=== PATIENT | female | born 1975 | race Caucasian/White ===

== ENCOUNTER 2017-11-17 10:18 | Inpatient (IN) | payer OTHER ==
[~2017-11-17] VITALS: Ht 167.6 cm; Wt 63.5 kg
--- NOTE | 2017-11-17 11:25 | NUR ---
PT AA/OX4 COMPLAINING OF RLQ ABDOMINAL PAIN. "I THREW UP A FEW TIMES YESTERDAY AND LAST NIGHT WHEN I TRIED TO EAT." 02/05 PAIN "CONSTANT." NO S/S OF SOB. DENIES CHEST PAIN. VSS. NAD. AMBULATED TO HOSPITAL BED WITH STEADY GAIT. AWAITING MD GALEANA.
[2017-11-17] MEDS ORDERED: MORPHINE SULFATE INJ 2 MG/ML DISP.SYRIN IV ONE ×2 (11:30→20:00)
[2017-11-17] MEDS ORDERED: ONDANSETRON HCL/PF - ER 4 MG/2 ML VIAL IV ONE (11:30)
[2017-11-17] MEDS ORDERED: ONDANSETRON HCL/PF 4 MG/2 ML VIAL ONE ×2 (11:36→14:41)
[2017-11-17] MEDS ORDERED: MORPHINE SULFATE INJ 4 MG/ML DISP.SYRIN ONE ×2 (11:36→19:54)
[2017-11-17 11:44] LABS: BASOPHILS # (AUTO) 0.1 /CMM (0.0-0.2); BASOPHILS % (AUTO) 1.3 % (0.0-2.0); EOSINOPHILS % (AUTO) 0.9 % (0.0-6.0); HEMATOCRIT 42 % (33-45); HEMOGLOBIN 14.3 g/dL (11.5-14.8); LYMPHOCYTES # (AUTO) 1.1 /CMM (0.8-4.8); LYMPHOCYTES % (AUTO) 11.6 % (20.0-44.0); MEAN CORPUSCULAR HEMOGLOBIN 32 PG (26.0-33.0); MEAN CORPUSCULAR HGB CONC 35 g/dl (31.0-36.0); MEAN CORPUSCULAR VOLUME 92 fL (82-100); MONOCYTES # (AUTO) 0.6 /CMM (0.1-1.30); MONOCYTES % (AUTO) 6.4 % (2.0-12.0); NEUTROPHILS # (AUTO) 7.4 /CMM (1.8-8.9); NEUTROPHILS % (AUTO) 79.8 % (43.0-81.0); PLATELET COUNT (AUTO) 226 /CMM (150-450); RDW COEFFICIENT OF VARIATION 12.1 (11.5-15.0); WHITE BLOOD COUNT (AUTO) 9.3 K/uL (4.3-11.0)
--- NOTE | 2017-11-17 11:45 | NUR ---
PT REFUSED MORPHINE AND ZOFRAN PER ORDERED BY MD. PT REFUSING TO GIVE URINE. PT REFUSED IV.
[2017-11-17 11:52] LABS: CALCIUM, SERUM 9.2 mg/dL (8.5-10.1); CREATININE 0.7 mg/dL (0.6-1.3)
[2017-11-17 11:57] LABS: ALBUMIN 3.8 g/dL (3.4-5.0); BILIRUBIN,TOTAL 1.5 mg/dL (0.2-1.0); TOTAL PROTEIN, SERUM 7.8 g/dL (6.4-8.2)
--- NOTE | 2017-11-17 12:20 | NUR ---
PT UNDERGOING CT. INSERTION OF SALINE LOCK
--- NOTE | 2017-11-17 12:26 | NUR ---
PT RETURNED FROM CT. STABLE CONDITION. NAD. VSS.
[2017-11-17] MEDS ORDERED: PIPERACILLIN /TAZOBACTAM 3.375 G in IV D5W 50 ML IV ONE (13:30)
[2017-11-17] MEDS ORDERED: PIPERACILLIN /TAZOBACTAM 3.375 G VIAL IV ONE (13:38)
[2017-11-17] MEDS ORDERED: KETOROLAC TROMETHAMINE INJ 30 MG/ML VIAL ONE (14:41)
[2017-11-17] MEDS ORDERED: ONDANSETRON HCL/PF 4 MG/2 ML VIAL IV ONE ×2 (15:00→20:30)
[2017-11-17] MEDS ORDERED: KETOROLAC TROMETHAMINE INJ 30 MG/ML VIAL IV ONE (15:00)
--- NOTE | 2017-11-17 15:24 | NUR ---
PT AMBULATED STABLE CONDITION TO CT.
--- NOTE | 2017-11-17 16:54 | NUR ---
CALLED JULIA TO EXPEDITE READ ON IMAGES
--- NOTE | 2017-11-17 16:54 | NUR ---
PT CONTINUES TO REST COMFORTABLE. EASILY AROUSED. VSS. NAD. STABLE CONDITION. SAFETY MEASURES IN PLACE. CALL LIGHT WITHIN REACH
--- NOTE | 2017-11-17 17:59 | NUR ---
PT LAYING IN BED ON PHONE. NAD VSS. SAFETY MEASURES IN PLACE. CALL LIGHT WITHIN REACH
[2017-11-17] MEDS ORDERED: HYDROMORPHONE INJ 2 MG/ML DISP.SYRIN ONE (20:12)
--- NOTE | 2017-11-17 20:23 | NUR ---
IF ADMITTED PATIENT ASSIGNED TO 313-1 TELE
--- NOTE | 2017-11-17 20:23 | NUR ---
SPOKE TO GLORIA TOPOGRAPHICAL ENGINEER. DR NGUYỄN WILL DO SURGERY HERE AND PER GLORIA PATIENT IS COVERED UNDER THE [facility] CONTRACT FOR HER STAY
--- NOTE | 2017-11-17 20:37 | NUR ---
PAGED DR NANCY RUCKER FOR PANEL ADMISSION
[2017-11-17] MEDS ORDERED: MORPHINE SULFATE INJ 2 MG/ML DISP.SYRIN IV PRN (21:00)
[2017-11-17] MEDS ORDERED: ONDANSETRON HCL/PF 4 MG/2 ML VIAL IVP PRN (21:00)
[2017-11-17] MEDS ORDERED: IV NS 0.9% 1,000 ML IV PRN (21:00)
--- NOTE | 2017-11-17 21:14 | NUR ---
REPORT GIVEN TO ANA LILIA CAMARGO. PT TRANSP STABLE CONDITION. NAD. VSS.
[2017-11-17 21:30] VITALS: BP 138/70
--- NOTE | 2017-11-17 21:40 | NUR ---
INTERNATIONAL TRADE TEACHER NOTES ADMIT PT FROM ER VIA [facility] ACCOMPANIED BY ER NURSE. DX OF ABDOMINAL PAIN/ APPENDICITIS. PT IS ALERT ORIENTED X4 ABLE TO AMBULATE , DENIES ANY DISCOMFORT AT THIS TIME. ORIENTED HOW TO USED THE CALL LIGHT SYSTEM AND ENCOURAGE HER TO USED IT IF SHE NEEDS SOME HELPED OR NEEDS THE NURSE. SKIN WARM AND DRY TO TOUCH, NO EDEMA NOTED. KEPT HER WARM AND COMFORTABLE AT ALL TIMES. PLACE CALL LIGHT AT REACH . ALL BELONIGS REVIWED BY BUNKER WORKER AND SIGNED, IV LEFT AC PATENT INTACT, MD AWARE OF ADMISSION, WILL FOLLOW UP WITH MD FOR ADMISSION ORDERS, WILL CONTINUITY WITH CARE.
--- NOTE | 2017-11-17 22:30 | NUR ---
RN NOTES DR. CRUZ AT BED SIDE TO SEE THE PATIENT ,PT. SEEN BY DR. CRUZ , ALL ORDER RVEIWED WITH MD, NEW ORDERS RECVIED AND CARRIED OUT.
--- NOTE | 2017-11-17 22:31 | NUR ---
DISCONTINUED MORPHINE PT VERBALIZED OF HAVING NAUSEA AFTER MORPHINE WAS GIVEN IN THE PAST & DIDN'T WANT TO TAKE MORPHINE @ ALL. DR CRUZ MADE AWARE WITH NEW ORDER TO DC MORPHINE & GIVE TORADOL ORDERED. ORDER WAS NOTED & CARRIED OUT.
[2017-11-17 22:33] LABS: INR 1.07 (0.87-1.13)
--- NOTE | 2017-11-17 22:40 | NUR ---
RN NOTES PT. TRANSFER TO OR IN STABLE CONDITION FOR LAPAROSCOPY APPENDECTOMY , NO ACUTE DISTRESS NOTED , VITAL SIGN IN WNL, PT. SIGNED ALL CONSENT FORM .
[2017-11-18] VITALS (12 sets, daily range): BP systolic 100–124; BP diastolic 50–78
[2017-11-18] MEDS ORDERED: ROCURONIUM BROMIDE 50 MG/5 ML ONE (00:05)
[2017-11-18] MEDS ORDERED: HYDROMORPHONE INJ 2 MG/ML DISP.SYRIN ONE (00:05)
[2017-11-18] MEDS ORDERED: MIDAZOLAM HCL 2 MG/2ML VIAL ONE (00:05)
[2017-11-18] MEDS ORDERED: SUCCINYLCHOLINE CHLORIDE 20 MG/ML VIAL ONE (00:05)
[2017-11-18] MEDS ORDERED: BUPIVACAINE 0.5 % PF 150 MG/30 ML VIAL ONE (00:14)
--- NOTE | 2017-11-18 03:00 | NUR ---
POST OP MS RN NOTES RECEIVED PT FROM OR IN BED ACCOMPANIED BY STAFF, RESPONDS TO VERBAL & TACTILE STIMULI. V/S 107/52, 57, 20, 98, 99%. IN STABLE CONDITION. NO ACUTE DISTRESS, DENIES ANY DISCOMFORT @ THIS TIME. WILL FOLLOW THE PROTOCOL OF CHECKING VS. SAFETY MEASURES IN PLACE. NEW OR ORDERS NOTED & CARRIED OUT. PT NOTED WITH 4 LAPAROSCOPIC SX SITES ON HER ABDOMEN. NO BLEEDING OR DRAINAGE NOTED. SX SITES ARE COVERED WITH DERMA BAND, TRANSPARENT. CALL LIGHT WITH IN REACH , BED IN LOW POSITION , WILL CONTINUITY WITH CARE
[2017-11-18] MEDS: IV LR 1000 ML 1,000 ML IV SCH ×2 (03:27→14:39)
[2017-11-18] MEDS ORDERED: POTASSIUM CL. PREMIX PERIPHER. 100 ML ONE (03:36)
[2017-11-18] MEDS: POTASSIUM CL. PREMIX PERIPHER. 50 ML IV SCH ×2 (03:42→05:18)
--- NOTE | 2017-11-18 03:47 | NUR ---
0000 ZOSYN NOT GIVEN PT WENT TO OR @ 2240 FOR SX, IV ANCEF WAS GIVEN IN THE OR. PT CAME BACK TO THE UNIT @ 0300. 0000 ZOSYN WAS NOT GIVEN, PT WAS IN OR @ THAT TIME. WOULD CONTINUE ZOSYN WITH NEXT SCHEDULED DOSE ORDERED @ 0600.
[2017-11-18] MEDS ORDERED: HYDROCODONE/APAP 5/325MG 1 EACH TABLET PO PRN (04:00)
[2017-11-18] MEDS ORDERED: MORPHINE SULFATE INJ 4 MG/ML DISP.SYRIN IV PRN (04:30)
--- NOTE | 2017-11-18 05:25 | NUR ---
NEW IV INSERTED PT'S LAC IV SITE NOTED TO BE INFILTRATED, REMOVED IV CATH, PRESSURE DRESSING APPLIED, ELEVATED THE ARM. NEW IV CATH INSERTED TO LFA G22, WITH GOOD BLOOD FLOW RETURN. PROCEDURE TOLERATED WELL BY THE PT. WILL MONITOR CLOSELY.
--- NOTE | 2017-11-18 06:24 | NUR ---
MS RN CLOSING NOTES PT COMFORTABLY ASLEEP AT THIS TIME, A/O X 4, STABLE CONDITION. SURGERY PT. TOLERTED WELL WELL NO ACUTE DISTRESS NOTED, IV LEFT FORE ARM PATENT INTACT WITH GOING ON LR 90 ML/HR RESPIRATION EVEN AND UNLABORED. KEPT CLEAN AND DRY AND COMFORTABLE, ALL NURSING CARE RENDERED. NEEDS ATTENDED AND ANTICIPATED, DENIES ANY DISCOMFORT AT THIS TIME. ON SAFE HAZARD FREE ENVIRONMENT PROVIDED. CALL LIGHT WITHIN EASY TO REACH. WILL ENDORSE NEXT SHIFT CONTINUITY OF CARE.
[2017-11-18] MEDS ORDERED: PIPERACILLIN /TAZOBACTAM 2.25 G VIAL IV ONE (06:37)
[2017-11-18 06:45] LABS: HEMATOCRIT 33 % (33-45); HEMOGLOBIN 11.2 g/dL (11.5-14.8); LYMPHOCYTES # (AUTO) 0.6 /CMM (0.8-4.8); LYMPHOCYTES % (AUTO) 6.1 % (20.0-44.0); MEAN CORPUSCULAR HEMOGLOBIN 33 PG (26.0-33.0); MEAN CORPUSCULAR HGB CONC 34 g/dl (31.0-36.0); MEAN CORPUSCULAR VOLUME 95 fL (82-100); MONOCYTES # (AUTO) 0.2 /CMM (0.1-1.30); MONOCYTES % (AUTO) 2.3 % (2.0-12.0); NEUTROPHILS # (AUTO) 9.1 /CMM (1.8-8.9); NEUTROPHILS % (AUTO) 91.6 % (43.0-81.0); PLATELET COUNT (AUTO) 177 /CMM (150-450); RED BLOOD CELL COUNT(AUTO) 3.45 MIL/uL (4.0-5.2)
[2017-11-18 06:47] LABS: CALCIUM, SERUM 7.6 mg/dL (8.5-10.1); CREATININE 0.6 mg/dL (0.6-1.3); MAGNESIUM 2.1 mg/dL (1.8-2.4); PHOSPHORUS 3.8 mg/dL (2.5-4.9)
[2017-11-18] MEDS: PIPERACILLIN /TAZOBACTAM 4.5 G in IV NS 0.9% 50 ML IV SCH ×5 (06:56→18:35)
--- NOTE | 2017-11-18 07:20 | NUR ---
MS RN OPENING NOTE RECEIVED PATIENT IN BED, ALERT ORIENTED X4. ON ROOM AIR, TOLERATING WELL. IN NO APPARENT DISTRESS OR DISCOMFORT AT THIS TIME. RESPIRATIONS EVEN AND UNLABORED, DENIES PAIN AND SOB. ABLE TO COMMUNICATE NEEDS FULLY. CONTINENT, USES BEDSIDE COMMODE FOR ELIMINATION. PATIENT WITH LEFT AC IVC 18G WITH FLUIDS RUNNING AT 90ML/HR, PATENT AND INTACT. ALL NEEDS ATTENDED, SAFETY MEASURES IN PLACE, BED IN LOW LOCKED POSITION, SIDE RAILS UP X2, CALL LIGHT WITHIN EASY REACH. WILL CONTINUE TO MONITOR.
[2017-11-18] MEDS ORDERED: PANTOPRAZOLE 40 MG VIAL IV SCH (09:00)
[2017-11-18] MEDS: KETOROLAC TROMETHAMINE INJ 30 MG/ML VIAL IV PRN ×2 (11:24→20:28)
[2017-11-18] MEDS: MORPHINE SULFATE INJ 2 MG/ML DISP.SYRIN IV PRN (16:10)
[2017-11-18] MEDS: MAG HYDROX/AL HYDROX/SIMETH 30 ML UDC PO PRN (18:34)
--- NOTE | 2017-11-18 19:30 | NUR ---
ANA LILIA MS NOTES RECEIVED PATIENT IN BED, AWAKE ALERT AND ORIENTED X4 , RESPIRATIONS EVEN AND UNLABORED WITH EQUAL RISE AND FALL OF CHEST. DENIES SOB AT THIS TIME, DENIES ANY PAIN OR DISCOMFORT AT THIS TIME, PATIENT IS AMBULATORY WITH BRP, LEFT AC #18 GAUGE INTACT AND PATENT, NO REDNESS NO INFILTRATION PRESENT, ALL NEEDS ATTENDED AT THIS TIME, FLUIDS OFFERED, ORIENTED TO STAFF AND CALL LIGHT, CALL LIGHT KEPT WITHIN REACH, WITH IVF RUNNING ORDERED. WILL CONTINUE TO MONITOR. Addendum: 11/19/17 at 0128 by АЛЕКСАНДР BAUTISTA RN ANA LILIA MS OPENING NOTES
--- NOTE | 2017-11-18 19:40 | NUR ---
MS RN CLOSING NOTE PATIENT IN BED, ALERT ORIENTED X4. ON ROOM AIR, TOLERATING WELL. IN NO APPARENT DISTRESS OR DISCOMFORT AT THIS TIME. RESPIRATIONS EVEN AND UNLABORED, DENIES PAIN AND SOB. ABLE TO COMMUNICATE NEEDS FULLY. CONTINENT, USES BATHROOM FOR ELIMINATION. PATIENT WITH LEFT AC IVC 18G WITH FLUIDS RUNNING AT 90ML/HR, PATENT AND INTACT. ALL NEEDS ATTENDED, SAFETY MEASURES IN PLACE, BED IN LOW LOCKED POSITION, SIDE RAILS UP X2, CALL LIGHT WITHIN EASY REACH. WILL ENDORSE TO PM NURSE FOR IFRAH.
--- NOTE | 2017-11-18 20:28 | NUR ---
rn ms notes patient in bed complaint of pain to shoulder and diaphragm related to gas pains. states 02/05 requesting for pain medication. Toradol prn given as ordered per md. will continue to monitor for effectiveness.
[2017-11-19] MEDS ORDERED: MAGNESIUM HYDROXIDE 30 ML UDC PO PRN
--- NOTE | 2017-11-19 | NUR ---
RN MS NOTES' PATIENT WANTED TO SPEAK TO NADEEN ZAZUETA MOEINOLMOLKI, PATIENT WAS ABLE TO SPEAK TO HIM, AND ALSO MADE MD AWARE OF PATIENT NOT HAVING A BM X2 DAYS AND PATIENT REQUESTING FOR POSSIBLE STOOL SOFTENER,PER MD NEW ORDER MILK OF MAGNESIUM 30CC PRN. MADE PATIENT AWARE, AT THIS TIME, STATES " I WILL TRY TO GO TO THE RESTROOM FIRST", MADE PATIENT AWARE THAT PRN ORDER IS AVAILABLE NEEDED, VERBALIZES SHE UNDERSTANDS.
[2017-11-19] MEDS: PIPERACILLIN /TAZOBACTAM 4.5 G in IV NS 0.9% 50 ML IV SCH ×2 (00:22→05:35)
[2017-11-19] MEDS: MORPHINE SULFATE INJ 2 MG/ML DISP.SYRIN IV PRN (00:23)
--- NOTE | 2017-11-19 00:23 | NUR ---
RN MS NOTES PATIENT COMPLAINT OF PAIN 8/10 ON ABDOMEN AND SHOULDER ,REQUESTING FOR MORPHINE. PRN MORPHINE GIVEN ORDERED VITAL SIGNS ARE WITHIN NORMAL LIMITS. WILL CONTINUE TO MONITOR EFFECTIVENESS.
[2017-11-19] MEDS: IV LR 1000 ML 1,000 ML IV SCH (02:35)
[2017-11-19] MEDS: KETOROLAC TROMETHAMINE INJ 30 MG/ML VIAL IV PRN ×2 (03:47→11:10)
[2017-11-19] MEDS: MAG HYDROX/AL HYDROX/SIMETH 30 ML UDC PO PRN (03:47)
--- NOTE | 2017-11-19 03:47 | NUR ---
rRN MS NOTES PATIENT COMPLAINT OF PAIN 9/10 TO SHOULDER AREA. VITAL SIGNS TAKEN BLOOD PRESSURE WITHIN NORMAL LIMITS.127/63, HR 65 O2 SAT 98% , RESP. 16. TORADOL PRN ORDERED GIVEN AND MAALOX GIVEN FOR STOMACH UPSET. WILL CONTINUE TO MONITOR ALL NEEDS ATTENDED AT THIS TIME.
--- NOTE | 2017-11-19 06:53 | NUR ---
RN MS NOTES PATIENT IN BED SLEEPING BUT EASILY AROUSABLE, RESPIRATIONS EVEN AND UNLABORED WITH EQUAL RISE AND FALL OF CHEST,DENIES ANY PAIN OR DISCOMFORT AT THIS TIME, IV SITE TO LEFT HAND 18GUAGE INTACT AND PATENT, NO REDNESS, NO INFILTRATION PRESENT, IVF RUNNING ORDERED. FLUIDS OFFERED TOLERATED, ALL NEEDS ATTENDED AT THIS TIME, CALL LIGHT KEPT WITHIN REACH, REMAINS COMFORTABLE, IV ANTIBIOTICS GIVEN ORDERED, WILL CONTINUE TO MONITOR AND ENDORSE TO NEXT SHIFT.
[2017-11-19 07:28] LABS: CALCIUM, SERUM 7.7 mg/dL (8.5-10.1); CREATININE 0.7 mg/dL (0.6-1.3); PHOSPHORUS 2.5 mg/dL (2.5-4.9); POTASSIUM 3.6 mmol/L (3.5-5.1)
--- NOTE | 2017-11-19 07:30 | NUR ---
MS RN OPENING NOTES Received patient awake/oriented x4, on high Becerra's position. With intact and patent IVF infusing well, no s/sx of infection noted. With minimal pain 3-4/10, no medication required per patient. Ambulatory and independent in performing ADLs. On soft diet. Possible for D/C if remains stable. Kept clean, dry and comfortable. Answered or inquiries. All needs attended and met. Will continue to monitor.
[2017-11-19 08:00] VITALS: BP 114/63
[2017-11-19] MEDS ORDERED: AMOX-430 PO (10:32)
[2017-11-19] MEDS ORDERED: AMOX/CLAVULANATE 875 MG TABLET PO SCH (11:00)
--- NOTE | 2017-11-19 14:55 | NUR ---
M/S RN - Discharge Patient feeling better, discharged home in stable condition. Reviewed discharge instructions with pt and she verbalized full understanding of all teachings including medication management and to f/u with her PCP in 1 week. All belongings with pt and she denies any missing items. VSS, denies abdominal pain, no c/o nausea and vomiting, tolerated soft diet well, no apparent distress seen. Heplock removed on the LFA with catheter tip intact, no redness and no swelling noted at the site. Skin is intact except for lap incision sites, refused photo to be taken. Discharge papers signed and copy was given per protocol. Accompanied to the lobby and transported by private car.
== END 2017-11-19 15:00 | disposition home or self-care (01) | DRG 225 ==
LOC: ER 10:19 → MED 20:48
PROC: 0DTJ4ZZ Resection of Appendix, Percutaneous Endoscopic Approach (ICD-10-PCS; principal; 2017-11-17 22:00)
DX: K35.80 Unspecified acute appendicitis (principal); Q79.6 Ehlers-Danlos syndromes; E87.6 Hypokalemia; E80.6 Other disorders of bilirubin metabolism
CPT/HCPCS: 36415; 80048-TC; 80053-TC; 83690-TC; 83735-TC; 84100-TC; 84703-TC; 85025-TC; 85610-TC; 85730-TC; 86850-TC; 87081-TC; A4216; A4606; C9113; J0330; J1170; J1885; J2250; J2270; J2405; J2543; J3480; J3490; J7030; J7060; J7120; Z7610